=== PATIENT | male | born 1980 | race African-American/Black ===

== ENCOUNTER 2017-02-18 16:09 | Emergency (ER) | payer MEDICAID ==
[~2017-02-18] VITALS: Ht 185.4 cm; Wt 90.9 kg
[~2017-02-18 16:09] MED LIST: RISP3 PO
[2017-02-18 16:16] VITALS: BP 137/72
== END 2017-02-18 18:49 | disposition left against medical advice (07) ==
LOC: EMS 16:11
DX: F22 Delusional disorders (principal); F31.9 Bipolar disorder, unspecified; F20.9 Schizophrenia, unspecified; F11.90 Opioid use, unspecified, uncomplicated; F12.90 Cannabis use, unspecified, uncomplicated; F14.90 Cocaine use, unspecified, uncomplicated; F15.90 Other stimulant use, unspecified, uncomplicated; F19.90 Other psychoactive substance use, unspecified, uncomplicated; F17.210 Nicotine dependence, cigarettes, uncomplicated; Z53.21 Procedure and treatment not carried out due to patient leaving prior to being seen by health care provider

== ENCOUNTER 2019-03-07 22:14 | Emergency (ER) | payer MEDICAID ==
[~2019-03-07] VITALS: Ht 185.4 cm; Wt 81.4 kg
[2019-03-07 22:20] VITALS: BP 149/86
== END 2019-03-08 00:06 | disposition left against medical advice (07) ==
LOC: EMS 22:14
DX: M79.671 Pain in right foot (principal); F31.9 Bipolar disorder, unspecified; F20.9 Schizophrenia, unspecified; F17.210 Nicotine dependence, cigarettes, uncomplicated; F13.10 Sedative, hypnotic or anxiolytic abuse, uncomplicated; F14.90 Cocaine use, unspecified, uncomplicated; F11.90 Opioid use, unspecified, uncomplicated; F12.90 Cannabis use, unspecified, uncomplicated; F15.90 Other stimulant use, unspecified, uncomplicated; Z59.0 Homelessness

== ENCOUNTER 2019-03-08 09:33 | Emergency (ER) | payer MEDICAID ==
[~2019-03-08] VITALS: Ht 185.4 cm; Wt 81.4 kg
[2019-03-08 10:28] VITALS: BP 136/78
== END 2019-03-08 11:00 | disposition home or self-care (01) ==
LOC: EMS 09:34
DX: F20.0 Paranoid schizophrenia (principal); F31.9 Bipolar disorder, unspecified; F17.210 Nicotine dependence, cigarettes, uncomplicated; F11.90 Opioid use, unspecified, uncomplicated; F12.90 Cannabis use, unspecified, uncomplicated; F15.90 Other stimulant use, unspecified, uncomplicated; F14.90 Cocaine use, unspecified, uncomplicated; Z59.0 Homelessness

== ENCOUNTER 2019-04-19 09:03 | Emergency (ER) | payer MEDICAID ==
[~2019-04-19] VITALS: Ht 185.4 cm; Wt 79.5 kg
[2019-04-19 11:49] VITALS: BP 115/59
== END 2019-04-19 12:40 | disposition home or self-care (01) ==
LOC: EMS 09:04
DX: F20.0 Paranoid schizophrenia (principal); F31.9 Bipolar disorder, unspecified; F17.210 Nicotine dependence, cigarettes, uncomplicated; F11.90 Opioid use, unspecified, uncomplicated; F12.90 Cannabis use, unspecified, uncomplicated; F15.90 Other stimulant use, unspecified, uncomplicated; F19.90 Other psychoactive substance use, unspecified, uncomplicated; Z59.0 Homelessness
CPT/HCPCS: 99406

== ENCOUNTER 2019-10-14 11:15 | Emergency (ER) | payer MEDICAID ==
[~2019-10-14] VITALS: Ht 188 cm; Wt 86.4 kg
[2019-10-14] MEDS ORDERED: DiphenhydrAMINE HCL 50 MG/ML VIAL ONE (13:42)
[2019-10-14] MEDS ORDERED: LORazepam 2 MG/ML VIAL ONE (13:42)
[2019-10-14] MEDS ORDERED: HALOPERIDOL LACTATE 5 MG/ML VIAL ONE (13:43)
[2019-10-14] MEDS ORDERED: HALOPERIDOL LACTATE 5 MG/ML VIAL IM ONE (14:00)
[2019-10-14] MEDS ORDERED: DiphenhydrAMINE HCL 50 MG/ML VIAL IM ONE (14:00)
[2019-10-14] MEDS ORDERED: LORazepam 2 MG/ML VIAL IM ONE (14:00)
[2019-10-14 14:58] LABS: BASOPHILS % (AUTO) 0.5 % (0.0-2.0); EOSINOPHILS % (AUTO) 1.6 % (1.0-6.0); HEMATOCRIT 39.9 % (41-53); HEMOGLOBIN 13.4 g/dL (13.5-17.5); LYMPHOCYTES # (AUTO) 1.2 K/uL (1.0-4.8); LYMPHOCYTES % (AUTO) 17.4 % (22.0-44.0); MEAN CORPUSCULAR HGB CONC 33.5 G/dL (31.0-37.0); MEAN CORPUSCULAR VOLUME 89 fL (80-100); MONOCYTES # (AUTO) 0.5 K/uL (0.1-1.0); MONOCYTES % (AUTO) 7.2 % (2.0-9.0); NEUTROPHILS # (AUTO) 4.9 K/uL (1.8-7.7); NEUTROPHILS % (AUTO) 73.3 % (40.0-70.0); PLATELET COUNT (AUTO) 223 K/uL (150-450); RED BLOOD CELL COUNT(AUTO) 4.46 MIL/uL (4.50-5.90); RED CELL DISTRIBUTION WIDTH 13.9 % (11.5-14.5)
[2019-10-14 15:12] LABS: ANION GAP 8 mmol/L (8-16); CALCIUM, TOTAL 8.8 mg/dL (8.8-10.5); CARBON DIOXIDE 29 mmol/L (22-29); CHLORIDE 108 mmol/L (98-107); CREATININE 0.88 mg/dL (0.60-1.30); GLOMERULAR FILTR. RATE CALC > 60 mL/min (>60); GLUCOSE,RANDOM 84 mg/dL (70-110); POTASSIUM 3.5 mmol/L (3.5-5.1); SODIUM SERUM 145 mmol/L (136-145); UREA NITROGEN, BLOOD 16 mg/dL (7-18)
[2019-10-14 15:18] LABS: ALANINE AMINOTRANSFERASE 36 U/L (12-78); ALBUMIN 3.7 g/dL (3.4-5.0); ALKALINE PHOSPHATASE 83 U/L (46-116); ASPARTATE AMINOTRANSFERASE 41 U/L (15-37); BILIRUBIN,TOTAL 0.5 mg/dL (0.1-1.0); TOTAL PROTEIN, SERUM 6.6 g/dL (6.4-8.2)
[2019-10-14 18:57] VITALS: BP 107/58
== END 2019-10-14 19:50 | disposition home or self-care (01) ==
LOC: EMS 11:17
DX: S00.83XA Contusion of other part of head, initial encounter (principal); F19.10 Other psychoactive substance abuse, uncomplicated; F20.9 Schizophrenia, unspecified; F31.9 Bipolar disorder, unspecified; F17.210 Nicotine dependence, cigarettes, uncomplicated; F11.10 Opioid abuse, uncomplicated; Z59.0 Homelessness; W22.8XXA Striking against or struck by other objects, initial encounter; Y93.89 Activity, other specified; Y92.89 Other specified places as the place of occurrence of the external cause; Y99.8 Other external cause status
CPT/HCPCS: 36415; 80053; 85025; 96372; 99285; G0480; J1200; J1630; J2060

== ENCOUNTER 2022-03-20 10:30 | Emergency (ER) | payer MEDICAID ==
[~2022-03-20] VITALS: Ht 182.9 cm; Wt 89.5 kg
[2022-03-20 12:36] VITALS: BP 101/51
== END 2022-03-20 12:27 ==
LOC: EMS 10:30
DX: Z02.89 Encounter for other administrative examinations (principal); F17.210 Nicotine dependence, cigarettes, uncomplicated; F10.20 Alcohol dependence, uncomplicated; F20.9 Schizophrenia, unspecified; F32.9 Major depressive disorder, single episode, unspecified; F15.10 Other stimulant abuse, uncomplicated; F13.20 Sedative, hypnotic or anxiolytic dependence, uncomplicated; F14.90 Cocaine use, unspecified, uncomplicated; F11.90 Opioid use, unspecified, uncomplicated; F19.90 Other psychoactive substance use, unspecified, uncomplicated
CPT/HCPCS: 74176; 99284; Z7502